=== PATIENT | male | born 1960 | race Caucasian/White ===

== ENCOUNTER 2017-06-14 06:49 | Inpatient (IN) | payer BC ==
[~2017-06-14] VITALS: Ht 182.9 cm; Wt 130.4 kg
[~2017-06-14 06:49] MED LIST: B-CO-15 OR; HYDR-4683 PO
[2017-06-14] MEDS ORDERED: ceFAZolin 1GM VL ONE (07:18)
[2017-06-14] MEDS ORDERED: TRANEXAMIC ACID 1,000 mg/10ml INJ VIAL ONE ×2 (07:18→08:35)
[2017-06-14] MEDS ORDERED: BUPIVACAINE 0.25% INJ 50ML VIAL ONE (07:19)
[2017-06-14] MEDS ORDERED: KETOROLAC TROMETH 30 MG/ML 1ML VIAL ONE (07:24)
[2017-06-14] MEDS ORDERED: VANCOMYCIN HCL 1000 MG VL ONE ×2 (07:25→07:44)
[2017-06-14] MEDS ORDERED: ceFAZolin 1GM/50ML 100 ML IV ONE (07:33)
[2017-06-14] MEDS ORDERED: ACETAMINOPHEN IV 100 ML IV ONE (07:34)
[2017-06-14] MEDS ORDERED: ROCURONIUM 10MG/ML 10ML VIAL IV ONE (07:35)
[2017-06-14] MEDS ORDERED: fentaNYL CITRATE 10 ML ONE (07:35)
[2017-06-14] MEDS ORDERED: HYDROmorphone HCL 2 MG/ML VL ONE (07:35)
[2017-06-14] MEDS ORDERED: MIDAZOLAM HCL 1MG/1ML-2 ML VIAL ONE (07:36)
[2017-06-14] MEDS ORDERED: ONDANSETRON HCL 4 MG/2 ML VIAL ONE (07:37)
[2017-06-14] MEDS ORDERED: PROPOFOL 10 MG/ML 20 ML IV ONE (07:37)
[2017-06-14] MEDS ORDERED: ACETAMINOPHEN IV 1000 MG/100ML (10MG/ML) IV ONE (07:45)
[2017-06-14] MEDS ORDERED: PREGABALIN CAPSULE 75 MG CAP PO ONE (07:45)
[2017-06-14] MEDS ORDERED: LIDOCAINE W/ EPINEPHRINE 2% INJ 20ML VIAL ONE (07:51)
[2017-06-14] MEDS ORDERED: KETOROLAC TROMETH 30 MG/ML 1ML VIAL IV ONE (08:00)
[2017-06-14] MEDS ORDERED: METOCLOPRAMIDE HCL 5MG/ml INJ 2ml VIAL IV ONE (08:00)
[2017-06-14] MEDS ORDERED: HYDROmorphone HCL 2 MG/ML VL IV PRN (08:00)
[2017-06-14] MEDS ORDERED: MORPHINE SULF(PF) 0.5MG/ML 10ML VIAL ONE (09:47)
[2017-06-14] MEDS ORDERED: GLYCOPYRROLATE 0.2 MG/ML 1ML VIAL ONE (10:14)
[2017-06-14] MEDS ORDERED: NEOSTIGMINE 1 MG/ML INJ (10mg/10ML VIAL) ONE (10:14)
[2017-06-14] MEDS ORDERED: NITROGLYCERIN 2% OINT 1GM PKG TD ONE (10:17)
[2017-06-14] MEDS ORDERED: NITROGLYCERIN 0.4 MG SL TAB SL PRN (11:30)
[2017-06-14] MEDS ORDERED: MORPHINE SULF INJ 2 MG/ML SYRINGE 1ML IV PRN (11:30)
[2017-06-14] MEDS ORDERED: HYDROcodone-ACET 7.5/325MG TAB PO PRN (11:45)
[2017-06-14] MEDS ORDERED: PREGABALIN 25 MG CAP PO ONE (11:45)
[2017-06-14] MEDS ORDERED: KETOROLAC TROMETH 30 MG/ML 1ML VIAL IV PRN (11:45)
[2017-06-14] MEDS ORDERED: ceFAZolin 1GM/50ML 50 ML IV SCH ×2 (13:00→14:00)
[2017-06-14] MEDS: D5W/LACTATED RINGERS 1,000 ML IV SCH ×2 (15:21→22:15)
[2017-06-14] MEDS: ONDANSETRON HCL 4 MG/2 ML VIAL IV PRN (15:22)
[2017-06-14] MEDS: SODIUM CHLOR 0.9% PF (SALINE LOCK) 10ML VIAL IV SCH ×2 (15:23→22:18)
[2017-06-14] MEDS: ceFAZolin 1GM 2 GM in D5W 5% 100 ML IV SCH ×2 (15:23→22:21)
[2017-06-14 17:59] VITALS: BP 137/79
[2017-06-14] MEDS: HYDROcodone-ACET 7.5/325MG TAB PO PRN (18:28)
[2017-06-14] MEDS: DOCUSATE SOD 100 MG CAP PO SCH (22:15)
[2017-06-14] MEDS: CELECOXIB 100 MG CAP PO SCH (22:16)
[2017-06-14 22:28] VITALS: BP 118/70
[2017-06-15 04:53] VITALS: BP 111/55
[2017-06-15] MEDS: SODIUM CHLOR 0.9% PF (SALINE LOCK) 10ML VIAL IV SCH ×3 (05:52→22:39)
[2017-06-15] MEDS: ceFAZolin 1GM 2 GM in D5W 5% 100 ML IV SCH (05:52)
[2017-06-15] MEDS: HYDROcodone-ACET 7.5/325MG TAB PO PRN ×3 (06:02→17:39)
[2017-06-15 06:24] LABS: Hematocrit 42.3 % (41.0-53.0); Hemoglobin 13.8 g/dL (13.5-17.5)
[2017-06-15 07:24] VITALS: BP 142/72
[2017-06-15] MEDS: HYDROmorphone HCL 2 MG/ML VL IV PRN ×2 (08:00→22:48)
[2017-06-15] MEDS: ONDANSETRON HCL 4 MG/2 ML VIAL IV PRN (08:03)
[2017-06-15] MEDS: D5W/LACTATED RINGERS 1,000 ML IV SCH ×2 (08:05→17:39)
[2017-06-15] MEDS: DOCUSATE SOD 100 MG CAP PO SCH ×2 (09:15→22:39)
[2017-06-15] MEDS: CELECOXIB 100 MG CAP PO SCH ×2 (09:15→22:39)
[2017-06-15] MEDS: B-COMPLEX W/ C & FOLIC ACID(NEPHROVITE TAB) PO SCH (09:15)
[2017-06-15] MEDS ORDERED: B COMPLEX VITAMINS OR SCH (10:00)
[2017-06-15] MEDS: ENOXAPARIN SOD 40 MG/0.4 ML SYRINGE SC SCH (11:00)
[2017-06-15] MEDS ORDERED: ENOXAPARIN SOD 30 MG/0.3 ML SYRINGE SC SCH (11:30)
[2017-06-15 14:06] VITALS: BP 152/87
[2017-06-15 17:20] VITALS: BP 132/72
[2017-06-15 22:00] VITALS: BP 138/88
[2017-06-16] MEDS: D5W/LACTATED RINGERS 1,000 ML IV SCH ×2 (05:40→13:25)
[2017-06-16] MEDS: SODIUM CHLOR 0.9% PF (SALINE LOCK) 10ML VIAL IV SCH ×2 (05:40→15:32)
[2017-06-16 06:03] VITALS: BP 132/76
[2017-06-16] MEDS: HYDROmorphone HCL 2 MG/ML VL IV PRN ×3 (06:03→14:26)
[2017-06-16 07:30] VITALS: BP 126/80
[2017-06-16 08:27] LABS: Hematocrit 37.2 % (41.0-53.0); Hemoglobin 12.4 g/dL (13.5-17.5)
[2017-06-16 08:30] VITALS: BP 126/80
[2017-06-16] MEDS ORDERED: POLYETHYLENE GLYCOL 17 GM PWDR PO SCH (10:00)
[2017-06-16] MEDS: DOCUSATE SOD 100 MG CAP PO SCH (10:08)
[2017-06-16] MEDS: B-COMPLEX W/ C & FOLIC ACID(NEPHROVITE TAB) PO SCH (10:08)
[2017-06-16] MEDS: ENOXAPARIN SOD 40 MG/0.4 ML SYRINGE SC SCH (10:09)
[2017-06-16 12:30] VITALS: BP 122/81
[2017-06-16] MEDS: CELECOXIB 100 MG CAP PO SCH (14:25)
[2017-06-16 17:30] VITALS: BP 134/80
== END 2017-06-16 19:10 | disposition home health service (06) | DRG 470 ==
LOC: SUR 06:49 → EAST 06:50
PROVIDERS: ADMIT Orthopaedic Surgery Adult Reconstructive Orthopaedic Surgery; ATTEND Internal Medicine
PROC: 8E0YXBZ Computer Assisted Procedure of Lower Extremity (ICD-10-PCS; 2017-06-14)
PROC: 0SRC0J9 Replacement of Right Knee Joint with Synthetic Substitute, Cemented, Open Approach (ICD-10-PCS; principal; 2017-06-14 08:10)
DX: M17.11 Unilateral primary osteoarthritis, right knee (principal); E11.9 Type 2 diabetes mellitus without complications; F12.90 Cannabis use, unspecified, uncomplicated; I10 Essential (primary) hypertension; K59.00 Constipation, unspecified; Z90.49 Acquired absence of other specified parts of digestive tract; M21.061 Valgus deformity, not elsewhere classified, right knee
CPT/HCPCS: 36415; 73562; 82962; 85014; 85018; 86850; 86860; 86870; 86880; 86900; 86901; 86905; 86906; 86970; 86971; 97116; 97163; 97530; C1713; J0131; J0690; J1885; J2250; J2405; J2704; J3490; J7060

== ENCOUNTER 2019-04-14 18:27 | Emergency (ER) | payer BC ==
[~2019-04-14] VITALS: Ht 182.9 cm; Wt 81.6 kg
[~2019-04-14 18:27] MED LIST changes: -HYDR-4683 PO
[2019-04-14 22:40] VITALS: BP 112/80
== END 2019-04-14 22:40 | disposition home or self-care (01) ==
LOC: EDBD 18:27 → ER 18:41
DX: S40.012A Contusion of left shoulder, initial encounter (principal); E11.9 Type 2 diabetes mellitus without complications; I10 Essential (primary) hypertension; X58.XXXA Exposure to other specified factors, initial encounter; Y93.89 Activity, other specified; Y92.89 Other specified places as the place of occurrence of the external cause; Y99.8 Other external cause status
CPT/HCPCS: 71250; 72125; 73200; 93005